=== PATIENT | male | born 1990 | race Two or more races ===

== ENCOUNTER 2020-03-17 12:32 | Emergency (ER) | payer SELFPAY ==
[~2020-03-17] VITALS: Ht 175.3 cm; Wt 84.1 kg
[2020-03-17] MEDS ORDERED: diphenhydrAMINE 50 MG/ML VIAL IVP ONE (13:30)
[2020-03-17] MEDS ORDERED: KETOROLAC 30 MG/ML VIAL. IVP ONE (13:30)
[2020-03-17] MEDS ORDERED: IV NORMAL SALINE 1000ML BAG 1,000 ML IV ONE (13:30)
[2020-03-17] MEDS ORDERED: PROCHLORPERAZINE 10 MG/2 ML VIAL. IV ONE (13:30)
--- NOTE | 2020-03-17 13:39 | PHYS DOC ---
Past Medical History Past Medical History: No Pertinent History (GINNA ROBERTSON MUSIC PUBLICIST) Past Surgical History: No Surgical History (GINNA ROBERTSON APRN) Smoking Status: Current Some Day Smoker Alcohol Use: Occasionally (GINNA ROBERTSON APRN) General Adult EDM: Chief Complaint: HEADACHE HPI: HPI: Patient is a 30 year old male who presents with an occipital headache that radiates into his neck. Patient reports that pain started this morning and has worsened. Patient describes the pain as an ache and he rates it 10 out of 10. He has not taken any treatment at home for his pain and nothing makes it worse or better. Patient reports that he feels like his whole body is shaky intermittently. Patient is not having any visual changes, numbness or tingling, fever, cough, chest pain, shortness of breath, loss of consciousness, abdominal pain, diarrhea, confusion. Patient is reporting a little bit of dizziness of which nothing makes better or worse and some nausea. He reports that he vomited a small amount this morning. Patient reports no past medical history no medications daily. (GINNA ROBERTSON MUSIC PUBLICIST) Review of Systems: Review of Systems: Constitutional: Denies fever or chills. [] Eyes: Denies change in visual acuity. [] HENT: Denies nasal congestion or sore throat. [] Respiratory: Denies cough or shortness of breath. [] Cardiovascular: Denies chest pain or edema. [] GI: Denies abdominal pain. + nausea, +vomiting, denies bloody stools or diarrhea. [] : Denies dysuria. [] Musculoskeletal: Denies back pain or joint pain. [] Integument: Denies rash. [] Neurologic: headache radiation into neck, intermittent tremors, denies focal weakness or sensory changes. [] Endocrine: Denies polyuria or polydipsia. [] Lymphatic: Denies swollen glands. [] Psychiatric: Denies depression or anxiety. [] (GINNA ROBERTSON APRN) Heart Score: Risk Factors: Risk Factors: DM, Current or recent (<one month) smoker, HTN, HLP, family history of CAD, obesity. Risk Scores: Score 0 - 3: 2.5% MACE over next 6 weeks - Discharge Home Score 4 - 6: 20.3% MACE over next 6 weeks - Admit for Clinical Observation Score 7 - 10: 72.7% MACE over next 6 weeks - Early Invasive Strategies ([facility] MUSIC PUBLICIST) Current Medications: Current Medications Medications (Trade) Dose Ordered Sig/Jessica Start Time Stop Time Status Last Admin Dose Admin Diphenhydramine HCl (Benadryl) 25 mg 1X ONCE 03/17/20 13:30 03/17/20 13:31 UNV Ketorolac Tromethamine (Toradol 30mg Vial) 30 mg 1X ONCE 03/17/20 13:30 03/17/20 13:31 UNV Prochlorperazine Edisylate (Compazine) 10 mg 1X ONCE 03/17/20 13:30 03/17/20 13:31 UNV Sodium Chloride 1,000 ml @ 1,000 mls/hr 1X ONCE 03/17/20 13:30 03/17/20 14:29 UNV ([facility] MUSIC PUBLICIST) Physical Exam: PE: Constitutional: Well developed, well nourished, no acute distress, non-toxic appearance. [] HENT: Normocephalic, atraumatic, bilateral external ears normal, oropharynx moist, no oral exudates, nose normal. [] Eyes: PERRLA, EOMI, conjunctiva normal, no discharge. [] Neck: Normal range of motion, no tenderness, supple, no stridor. [] Cardiovascular:Heart rate regular rhythm, no murmur [] Lungs & Thorax: Bilateral breath sounds clear to auscultation [] Abdomen: Bowel sounds normal, soft, no tenderness, no masses, no pulsatile masses. [] Skin: Warm, dry, no erythema, no rash. [] Back: No tenderness, no CVA tenderness. [] Extremities: No tenderness, no cyanosis, no clubbing, ROM intact, no edema. [] Neurologic: Alert and oriented X 3, normal motor function, normal sensory function, no focal deficits noted. [] Psychologic: Affect normal, judgement normal, mood normal. Normal physical exam [] ([facility] MUSIC PUBLICIST) Current Patient Data: Vital Signs: Vital Signs Date Time Temp Pulse Resp B/P (MAP) Pulse Ox O2 Delivery O2 Flow Rate FiO2 03/17/20 12:40 98.4 99 12 146/91 (109) 96 Room Air 98.4 (GINNA ROBERTSON APRN) EKG: EKG: [] (GINNA ROBERTSON APRN) Radiology/Procedures: Radiology/Procedures: [] Impression: [facility] [address] [place] [address] IMAGING REPORT Signed PATIENT: RADHA HAREACCOUNT: [id number] : 1990 LOCATION: ER AGE: 30 SEX: M EXAM STATUS: REG ER ORD. PHYSICIAN: GINNA ROBERTSON APRN REASON: HEAD AND NECK PAIN TODAY, DIZZINESS. PROCEDURE: CT HEAD AND CERVICAL SPINE WO CT HEAD AND CERVICAL SPINE WO Date: 03/17/2020 1:29 PM Clinical Indication: Reason: HEAD AND NECK PAIN TODAY, DIZZINESS. / Spl. Instructions: / History: Comparison: None. Technique: 5 mm axial tomographic images were obtained of the head without contrast. These were viewed on brain and bone windows. CT imaging of the cervical spine was performed without contrast. Coronal and sagittal reformatted images were performed. One or more of the following dose reduction techniques were utilized: Automated exposure control (AEC), Adjustment of mA and/or kV according to patient size, Use of iterative reconstruction technique such as ASiR, CT scan done according to ALARA and image gently/image wisely HEAD FINDINGS: The brain parenchyma is normal in attenuation. No intra- or extra-axial mass or fluid collection. No acute hemorrhage. The ventricles are normal in size, shape, and morphology. The borden-white matter junction is normal. The basilar cisterns are patent. The visualized paranasal sinuses are normal. The visualized portions of the orbits and globes are normal. The mastoid air cells are clear. No aggressive osseous lesion or fracture. CERVICAL SPINE FINDINGS: The cervical spine is normally aligned. No acute fracture. No aggressive lytic or blastic osseous lesion. The intervertebral disc heights are maintained. No high-grade spinal canal stenosis or neural foraminal narrowing. The thyroid gland is normal. No cervical lymphadenopathy. The visualized aerodigestive tract is unremarkable. The visualized lung apices are clear. IMPRESSION: 1. No acute intracranial process. 2. No acute osseous abnormality of the cervical spine. Electronically signed by: Courtney Mcgill MD (03/17/2020 2:07 PM) [id number] DICTATED and SIGNED BY: COURTNEY MCGILL MD DATE: 03/17/201406 (GINNA ROBERTSON APRN) Course & Med Decision Making: Course & Med Decision Making Pertinent Labs and Imaging studies reviewed. (See chart for details) No tremors can be seen during examination resting or with movement. Ambulatory with a steady gait. Speaks in full complete sentences. Moves all extremities equally with equal strengths. Skin pink warm and dry. Vital signs within normal limits. He is alert and oriented. Russian-speaking only and seat cover cutter phone is used. Patient is able to perform nose finger nose. PERRLA. No nystagmus. Patient is given Compazine, normal saline, Toradol, Benadryl in the ED. A CT for his head and cervical spine is ordered. Blood work unremarkable. CT head and cervical spine show no acute findings. Patient remains afebrile and his vital signs are within normal limits. Patient states he is feeling much better. Patient will be sent home and follow-up with primary care provider. [] (GINNA ROBERTSON APRN) Dragon Disclaimer: Dragon Disclaimer: This electronic medical record was generated, in whole or in part, using a voice recognition dictation system. (GINNA ROBERTSON APRN) NIHSS Stroke Scale NIH Stroke Scale: NIH Stroke Scale Response (Comments) Value Level of Consciousness: 0 Alert/Responsive 0 LOC Questions: 0 Answers both correctly 0 LOC Commands: 0 Performs both tasks 0 Best Gaze: 0 Normal 0 Visual: 0 No visual loss 0 Facial Palsy: 0 Normal, symmetrical 0 Motor - Left Arm 0 No drift 0 Motor - Right Arm 0 No drift 0 Motor - Left Leg 0 No drift 0 Motor: Right Leg 0 No drift 0 Limb Ataxia: 0 Absent 0 Sensory: 0 No loss 0 Best Language: 0 Normal 0 Dysathria: 0 Normal 0 Extinction and Inattention: 0 Normal 0 Total 0 Departure Departure Impression: Primary Impression: Headache Qualified Codes: R51 - Headache Disposition: HOME, SELF-CARE Condition: STABLE Referrals: NO PCP (PCP) Patient Instructions: Migraine Headache Additional Instructions: Follow-up with a primary care physician. Drink plenty of fluids. Justicifation of Admission Dx: Justifications for Admission: Justification of Admission Dx: N/A (GINNA ROBERTSON APRN) Attending Signature Attending Signature I have participated in the care of this patient and I have reviewed and agree with all pertinent clinical information above including history, exam, and recommendations. (JOHN CLINTON DO) GINNA ROBERTSON APRN Mar 17, 2020 13:39 JOHN CLINTON DO Mar 17, 2020 16:10
[2020-03-17 13:52] LABS: BASO % 1 % (0-3); EOS # 0.1 x10^3/uL (0.0-0.7); EOS % 1 % (0-3); HEMATOCRIT 43.6 % (39.0-53.0); HEMOGLOBIN 15.5 g/dL (13.0-17.5); LYMPH # 1.7 x10^3/uL (1.0-4.8); LYMPH % 35 % (24-48); MEAN CORPUSCULAR HEMOGLOBIN 34 pg (25-35); MEAN CORPUSCULAR HGB CONC 36 g/dL (31-37); MEAN CORPUSCULAR VOLUME 96 fL (79-100); MONO # 0.3 x10^3/uL (0.0-1.1); MONO % 6 % (0-9); NEUT # 2.9 x10^3/uL (1.8-7.7); NEUT % 57 % (31-73); PLATELET COUNT 163 x10^3/uL (140-400); RED BLOOD COUNT 4.57 x10^6/uL (4.30-5.70); RED CELL DISTRIBUTION WIDTH 12.6 % (11.5-14.5)
[2020-03-17 14:09] LABS: CALCIUM 8.5 mg/dL (8.5-10.1); GFR 87.7; POTASSIUM 3.4 mmol/L (3.5-5.1)
--- NOTE | 2020-03-17 14:10 | RAD ---
CT HEAD AND CERVICAL SPINE WO Date: 03/17/2020 1:29 PM Clinical Indication: Reason: HEAD AND NECK PAIN TODAY, DIZZINESS. / Spl. Instructions: / History: Comparison: None. Technique: 5 mm axial tomographic images were obtained of the head without contrast. These were viewed on brain and bone windows. CT imaging of the cervical spine was performed without contrast. Coronal and sagittal reformatted images were performed. One or more of the following dose reduction techniques were utilized: Automated exposure control (AEC), Adjustment of mA and/or kV according to patient size, Use of iterative reconstruction technique such as ASiR, CT scan done according to ALARA and image gently/image wisely HEAD FINDINGS: The brain parenchyma is normal in attenuation. No intra- or extra-axial mass or fluid collection. No acute hemorrhage. The ventricles are normal in size, shape, and morphology. The borden-white matter junction is normal. The basilar cisterns are patent. The visualized paranasal sinuses are normal. The visualized portions of the orbits and globes are normal. The mastoid air cells are clear. No aggressive osseous lesion or fracture. CERVICAL SPINE FINDINGS: The cervical spine is normally aligned. No acute fracture. No aggressive lytic or blastic osseous lesion. The intervertebral disc heights are maintained. No high-grade spinal canal stenosis or neural foraminal narrowing. The thyroid gland is normal. No cervical lymphadenopathy. The visualized aerodigestive tract is unremarkable. The visualized lung apices are clear. IMPRESSION: 1. No acute intracranial process. 2. No acute osseous abnormality of the cervical spine. Electronically signed by: Dean Mcgill MD (03/17/2020 2:07 PM) [id number]
[2020-03-17 14:21] LABS: ALBUMIN 3.9 g/dL (3.4-5.0); ALBUMIN/GLOBULIN RATIO 1.1 (1.0-1.7); TOTAL BILIRUBIN 1.1 mg/dL (0.2-1.0); TOTAL PROTEIN 7.5 g/dL (6.4-8.2)
[2020-03-17 14:49] LABS: BILIRUBIN,URINE NEGATIVE (NEG); CLARITY,URINE CLEAR; COLOR,URINE YELLOW; NITRITE,URINE NEGATIVE (NEG); PROTEIN,URINE NEGATIVE (NEG-TRACE); UROBILINOGEN,URINE 0.2 mg/dL (0.2 mg/dL)
[2020-03-17 14:54] LABS: BARBITURATES NEG (NEG); BENZODIAZEPINES NEG (NEG); CANNABINOIDS NEG (NEG); COCAINE NEG (NEG); METHADONE NEG (NEG); OPIATES NEG (NEG); PHENCYCLIDINE NEG (NEG)
[2020-03-17 14:58] LABS: BACTERIA,URINE 0 /HPF (0-FEW)
[2020-03-17 14:59] LABS: AMPHETAMINE/METHAMPHETAMINE NEG (NEG); SQUAMOUS EPITHELIAL CELL,UR OCC /LPF; WBC,URINE 0 /HPF (0-4)
[2020-03-17 15:44] VITALS: BP 139/75
== END 2020-03-17 15:39 | disposition home or self-care (01) ==
LOC: ER 12:32
DX: R51 Headache (principal); R42 Dizziness and giddiness; R11.2 Nausea with vomiting, unspecified; F17.200 Nicotine dependence, unspecified, uncomplicated; Z79.899 Other long term (current) drug therapy
CPT/HCPCS: 36415; 70450; 72125; 80053; 80307; 81001; 85025; 96361; 96374; 96375; 99285; J0780; J1200; J1885; J7030